=== PATIENT | male | born 1955 | race Caucasian/White ===

== ENCOUNTER → 2017-04-11 | Outpatient (REF) ==
[~2017-04-11] MED LIST: ACET65TA OR; HYDR-727; SIMVPOW2
--- NOTE | 2017-04-11 13:27 | REP ---
Right shoulder three views: There is acromioclavicular osteoarthritis. The glenohumeral articulation is unremarkable. Mineralization is normal. No calcifications. There is no fracture or dislocation. Impression: Acromioclavicular osteoarthritis. The Signed by Josiah Beckman MD 04/11/2017 01:19 P
== END ==
LOC: M RAD 11:46
PROVIDERS: ATTEND Internal Medicine
DX: M19.011 Primary osteoarthritis, right shoulder (principal)

== ENCOUNTER → 2019-07-09 | Outpatient (CLI) | payer OTHER ==
--- NOTE | 2019-07-09 08:36 | REP ---
Clinical: Abdominal pain. Technique: Real time hamilton scale ultrasound examination using curved array transducer. Findings: The liver and visualized pancreas are normal in appearance and without focal hepatic or pancreatic lesion identified. Gallbladder is normal and without gallstones, wall thickening, or pericholecystic fluid. No biliary ductal dilatation is appreciated and the common bile duct measures 6 mm diameter. 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 The right kidney is normal in reniform shape and appearance without hydronephrosis and measures 13.4 x 7.9 x 5.9 cm. The left kidney demonstrates partial upper pole nephrectomy and measures 5.2 x 5.0 x 5.2 cm without hydronephrosis. No ascites. Visualized abdominal aorta is unremarkable and measures 2.2 cm maximal diameter. Impression: 1. 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 2. No acute abdominopelvic pathology appreciated. Electronically Signed by Greg Molina MD 07/09/2019 08:27 A
== END ==
LOC: M RAD 07:54
PROVIDERS: ATTEND Internal Medicine
DX: R10.9 Unspecified abdominal pain (principal)

== ENCOUNTER → 2019-09-14 | Outpatient (CLI) | payer OTHER ==
[~2019-09-14] MED LIST changes: +FUROSEMIDE 20 MG/2 ML VIAL (J1940) As Ordered ONE
--- NOTE | 2019-09-14 12:57 | REP ---
Nuclear renal scintigraphy with differential flow and function analysis: Including Lasix venography. History: Abnormal radiologic findings. Comparison CT study and ultrasound exam from July 20, 2019. Comparison CT study is also reviewed from January 15, 2012. There is a history of partial left nephrectomy. Technique: 8.7 mCi technetium 99m MAG 3 is injected and standard posterior flow and excretory phase images are acquired. Renal cortical regions of interest are drawn and time activity curves are plotted for renal function analysis. 20 mg of intravenous Lasix is injected and post Lasix renography is carried out. Scintigraphic findings: Posterior flow study shows symmetric perfusion of the kidneys. The left kidney is laterally displaced as seen on CT studies and smaller than the right but perfuses symmetrically. Excretory phase images demonstrate bilateral renal function with a small left sided kidney laterally displaced post partial nephrectomy as seen on CT. There is no evidence of obstructive uropathy on pre Lasix images. Differential renal function analysis is quite asymmetric with only 16% of renal cortical counts coming from the left kidney and 84% from the right. Time to peak activity is normal bilaterally at 3.0 minutes. Time to half max activity is 4.8 minutes on the right and not calculable on the left. Post Lasix imaging is not informative as there is no hydronephrosis on the pre Lasix images. Impression: Status post partial left nephrectomy with lateral displacement postoperatively seen in the left kidney. Normal flow and function. No evidence of obstructive uropathy. Electronically Signed by Paulino Mustafa MD 09/14/2019 06:42 P
== END ==
LOC: M RAD 09:29
PROVIDERS: ATTEND Nurse Practitioner Family
DX: Z90.5 Acquired absence of kidney (principal); R93.41 Abnormal radiologic findings on diagnostic imaging of renal pelvis, ureter, or bladder
CPT/HCPCS: 78708; A9562; J1940

== ENCOUNTER 2020-04-24 09:44 | Emergency (ER) | payer OTHER ==
[~2020-04-24] VITALS: Ht 185.4 cm; Wt 124.4 kg
[~2020-04-24 09:44] MED LIST changes: -FUROSEMIDE 20 MG/2 ML VIAL (J1940) As Ordered ONE
[2020-04-24] MEDS ORDERED: ALLO100T PO (09:59)
[2020-04-24] MEDS ORDERED: ROSU5TAB5 PO (09:59)
[2020-04-24] MEDS ORDERED: RAMI1CAP26 PO (09:59)
--- NOTE | 2020-04-24 10:46 | REPVR ---
PROCEDURE INFORMATION: Exam: US Duplex Right Lower Extremity Veins, Limited Exam date and time: 04/24/2020 10:41 AM Age: 64 years old Clinical indication: Swelling (edema) of limb; Lower extremity, right TECHNIQUE: Imaging protocol: Real-time Duplex ultrasound of the Right Lower Extremity with 2-D hamilton scale, color Doppler flow and spectral waveform analysis with image documentation. Limited exam was focused on the right lower extremity veins. COMPARISON: No relevant prior studies available. FINDINGS: Right deep veins: Examination reveals nonocclusive deep venous thrombosis in the right popliteal vein. There is occlusive deep venous thrombosis in the right posterior tibial vein. The right common femoral and femoral vein are patent without evidence for DVT. Right superficial veins: Unremarkable. Saphenofemoral junction is patent without thrombus. Soft tissues: Unremarkable. IMPRESSION: Examination reveals nonocclusive deep venous thrombosis in the right popliteal vein. There is occlusive deep venous thrombosis in the right posterior tibial vein. Electronically signed by: Mello Marsh On 04/24/2020 10:46:25 AM
--- NOTE | 2020-04-24 11:20 | REPVR ---
PROCEDURE INFORMATION: Exam: CT Head Without Contrast Exam date and time: 04/24/2020 11:11 AM Age: 64 years old Clinical indication: Other: Paresthesia TECHNIQUE: Imaging protocol: Computed tomography of the head without contrast. Radiation optimization: All CT scans at this facility use at least one of these dose optimization techniques: automated exposure control; mA and/or kV adjustment per patient size (includes targeted exams where dose is matched to clinical indication); or iterative reconstruction. COMPARISON: No relevant prior studies available. FINDINGS: Brain: Examination of the brain demonstrates normal structure and attenuation.The cortical steele / white matter interfaces are preserved throughout the brain.No acute infarction, masses or hemorrhage is seen. Cerebral ventricles: The ventricular system is not dilated and is appropriate for the patient's age. Bones/joints: Unremarkable. No acute fracture. Paranasal sinuses: Visualized sinuses are unremarkable. No fluid levels. Mastoid air cells: Visualized mastoid air cells are well aerated. Soft tissues: Unremarkable. IMPRESSION: No acute infarction, masses or hemorrhage is seen. No acute intracranial abnormality is identified. Electronically signed by: Mello Marsh On 04/24/2020 11:19:43 AM
[2020-04-24] MEDS ORDERED: FLON1SPR (12:02)
[2020-04-24] MEDS ORDERED: RAMI1CAP24 PO (12:02)
[2020-04-24] MEDS ORDERED: ROSU40TA4 PO (12:02)
[2020-04-24] MEDS ORDERED: VITA50005 PO (12:02)
[2020-04-24] MEDS ORDERED: OMEP-221 PO (12:02)
[2020-04-24] MEDS ORDERED: IBUP1TAB6 PO (12:02)
[2020-04-24 13:01] LABS: INR 0.97; PROTHROMBIN TIME 13.1 SECONDS (12.5-14.3)
[2020-04-24 13:02] LABS: PARTIAL THROMBOPLASTIN TIME 35.1 SECONDS (24.2-38.5)
[2020-04-24] MEDS ORDERED: RIVAROXABAN 15 MG TAB (XARELTO) PO ONE (14:00)
[2020-04-24] MEDS ORDERED: XARE15TA PO (14:09)
[2020-04-24 15:30] VITALS: BP 134/75
--- NOTE | 2020-04-24 19:33 | ECGEPIP ---
[facility] - ED Test Date: 2020-04-24 Pat Name: AYDEN HURTADO Department: Room: - Gender: Male [employer]: : [id number] Requested By: Minal Carlos Order Number: [id number] Reading MD: Tommie Butt Measurements Intervals [place] Rate: 51 P: 27 NE: 202 QRS: -57 QRSD: 121 T: 12 QT: 408 QTc: 379 Interpretive Statements SINUS BRADYCARDIA RIGHT BUNDLE BRANCH BLOCK NONSPECIFIC T WAVE ABNORMALITY(S) BASELINE ARTIFACT AFFECTS INTERPRETATION NO PRIORS FOR COMPARISON Electronically Signed on 04-24-2020 19:33:16 EDT by Tommie Butt
[2020-04-30 12:51] LABS: DRVV SCREEN 68.9 SEC; PTT LUPUS TYPE ANTICOAG SCREEN 1.8 (0-1.2)
[2020-04-30 13:06] LABS: DRVV CONFIRM 53.3 SEC; LUPUS CONFIRM RATIO 1.4; NORMALIZED RATIO 1.29 (0.00-1.20)
[2020-04-30 21:08] LABS: ANTI THROMBIN 3 ANTIGEN IMMUNO 89 % (72-124); ANTI THROMBIN 3 FUNCT ACTIVITY 107 % (75-135); CARDIOLIPIN IGA ANTIBODY <9 APL U/mL (0-11); CARDIOLIPIN IGG ANTIBODY <9 GPL U/mL (0-14); CARDIOLIPIN IGM ANTIBODY 19 MPL U/mL (0-12); PHOSPHOLIPIDS LEVEL 186 mg/dL (150-250); PROTEIN C FUNCTIONAL ACTIVITY 157 % (73-180); PROTEIN S FUNCTIONAL ACTIVITY 77 % (63-140)
[2020-05-04 09:06] LABS: HEXAGONAL PHASE PHOSPHOLIPID 15 sec (0-11)
== END 2020-04-24 15:32 | disposition home or self-care (01) ==
LOC: M ED 09:44
DX: I82.409 Acute embolism and thrombosis of unspecified deep veins of unspecified lower extremity (principal); I10 Essential (primary) hypertension; R00.1 Bradycardia, unspecified; I45.10 Unspecified right bundle-branch block; Z79.899 Other long term (current) drug therapy

== ENCOUNTER → 2022-09-13 | Outpatient (CLI) | payer MEDICARE, OTHER ==
[~2022-09-13] MED LIST changes: +ALLO100T PO; +ERGO500029 PO; +FLON1SPR; +IBUP1TAB6 PO; +OMEP40CA5 PO; +RAMI1CAP24 PO; +RAMI1CAP26 PO; +ROSU40TA4 PO; +ROSU5TAB5 PO; +XARE15TA PO
== END ==
LOC: M RAD 13:00
PROVIDERS: ATTEND Orthopaedic Surgery
DX: S46.012A Strain of muscle(s) and tendon(s) of the rotator cuff of left shoulder, initial encounter (principal); X58.XXXA Exposure to other specified factors, initial encounter; Y92.9 Unspecified place or not applicable

== ENCOUNTER 2022-11-27 12:50 | Emergency (ER) | payer MEDICARE, OTHER ==
[~2022-11-27] VITALS: Ht 185.4 cm; Wt 126.1 kg
[2022-11-27] MEDS ORDERED: NS 1,000 ML IV ONE (13:35)
[2022-11-27] MEDS ORDERED: ISOVUE-370 76% 100ML VIAL As Ordered ONE (13:43)
[2022-11-27 13:48] LABS: BASO # 0.1 10^3/uL (0.0-0.2); BASO % 0.5 % (0.0-1.0); EOS # 0.1 10^3/uL (0.0-0.5); EOS % 0.5 % (0.0-3.0); HEMATOCRIT 47.4 % (42.0-52.0); HEMOGLOBIN 15.4 g/dl (13.5-17.5); LYMPH # 3.2 10^3/uL (1.5-5.0); LYMPH % 31.1 % (24.0-44.0); MEAN CORPUSCULAR HGB CONC 32.5 g/dl (32.0-36.5); MEAN CORPUSCULAR VOLUME 89.3 fl (80.0-96.0); MONO # 0.9 10^3/uL (0.0-0.8); NEUTROPHILS # 6.1 10^3/uL (1.5-8.5); NEUTROPHILS % 58.6 % (36.0-66.0); PLATELET COUNT, AUTOMATED 348 10^3/uL (150-450); RED BLOOD COUNT 5.31 10^6/uL (4.30-6.10); WHITE BLOOD COUNT 10.4 10^3/uL (4.0-10.0)
[2022-11-27 14:03] LABS: ALBUMIN 3.8 G/DL (3.2-5.2); BILIRUBIN,DIRECT 0.2 MG/DL (<0.4); BILIRUBIN,TOTAL 0.7 MG/DL (0.3-1.2); TOTAL PROTEIN 6.9 G/DL (5.7-8.2)
[2022-11-27 15:40] VITALS: BP 141/81
== END 2022-11-27 15:59 | disposition home or self-care (01) ==
LOC: M ED 12:50
DX: R10.32 Left lower quadrant pain (principal); N23 Unspecified renal colic; Z88.0 Allergy status to penicillin; Z88.1 Allergy status to other antibiotic agents; Z79.899 Other long term (current) drug therapy
CPT/HCPCS: 36415; 74177; 80047; 80076; 83690; 85025; 99284; Q9967

== ENCOUNTER 2023-05-23 06:50 | Day surgery (SDC) | payer MEDICARE, OTHER ==
[~2023-05-23] VITALS: Ht 185.4 cm; Wt 124.6 kg
[~2023-05-23 06:50] MED LIST changes: +CELE1CAP4 PO; +HYDR-4514 PO; +JARD1TAB PO; +NS 1,000 ML IV ONE; +VITA100093 PO; +propofoL 200 MG/20 ML VIAL As Ordered ONE
[2023-05-23] MEDS ORDERED: propofoL 200 MG/20 ML VIAL As Ordered ONE ×2 (07:04→07:39)
[2023-05-23 08:19] VITALS: BP 139/78; TEMP 97.9; O2SAT 95
== END 2023-05-23 08:22 | disposition home or self-care (01) ==
LOC: M OPP 06:50
PROVIDERS: ATTEND Internal Medicine Gastroenterology
DX: Z12.11 Encounter for screening for malignant neoplasm of colon (principal); Z12.12 Encounter for screening for malignant neoplasm of rectum; K64.0 First degree hemorrhoids; K57.30 Diverticulosis of large intestine without perforation or abscess without bleeding; Z98.0 Intestinal bypass and anastomosis status; E11.9 Type 2 diabetes mellitus without complications; I10 Essential (primary) hypertension; E78.00 Pure hypercholesterolemia, unspecified; Z79.01 Long term (current) use of anticoagulants; Z79.899 Other long term (current) drug therapy; Z86.718 Personal history of other venous thrombosis and embolism; Z90.5 Acquired absence of kidney; Z88.0 Allergy status to penicillin; Z88.1 Allergy status to other antibiotic agents

== ENCOUNTER → 2024-03-01 | Outpatient (CLI) | payer MEDICARE, OTHER ==
[~2024-03-01] MED LIST changes: -NS 1,000 ML IV ONE; +RAMI10CA64 PO; -RAMI1CAP24 PO; -RAMI1CAP26 PO; +RAMI5CAP60 PO; -ROSU40TA4 PO; +ROSU40TA63 PO; +ROSU5TAB40 PO; -ROSU5TAB5 PO; -propofoL 200 MG/20 ML VIAL As Ordered ONE
== END ==
LOC: M RAD 13:35
PROVIDERS: ATTEND Internal Medicine
DX: N18.9 Chronic kidney disease, unspecified (principal); N20.0 Calculus of kidney; N28.81 Hypertrophy of kidney

== ENCOUNTER → 2024-05-25 | Outpatient (REF) | payer OTHER ==
[~2024-05-25] MED LIST changes: -ROSU40TA63 PO; +ROSU40TA81 PO; -ROSU5TAB40 PO; +ROSU5TAB49 PO
[2024-05-25 17:54] LABS: APPEARANCE, URINE CLEAR (CLEAR); BACTERIA, URINE AUTO NEGATIVE (NEGATIVE); BILIRUBIN, URINE AUTO NEGATIVE (NEGATIVE); BLOOD, URINE BLOOD NEGATIVE (NEGATIVE); COLOR, URINE YELLOW (YELLOW); GLUCOSE, URINE (UA) AUTO 3+ mg/dL (NEGATIVE); KETONE, URINE AUTO NEGATIVE (NEGATIVE); LEUKOCYTE ESTERASE, URINE AUTO NEGATIVE (NEGATIVE); MUCUS, URINE SMALL (NEGATIVE); NITRITE, URINE AUTO NEGATIVE (NEGATIVE); PROTEIN, URINE AUTO NEGATIVE (NEGATIVE); RBC, URINE AUTO 0 /HPF (0-3); SPECIFIC GRAVITY URINE AUTO 1.032 (1.002-1.035); SQUAMOUS EPITHELIAL CELL UR AU 0 /HPF (0-6); UROBILINOGEN, URINE AUTO 0.2 mg/dL (0.0-2.0); WBC, URINE AUTO 2 /HPF (0-3)
== END ==
LOC: M SMT 16:47
PROVIDERS: ATTEND Nurse Practitioner Family
DX: R10.9 Unspecified abdominal pain (principal)

== ENCOUNTER → 2024-06-06 | Outpatient (CLI) | payer OTHER, MEDICARE | LOC: M PLAIMG 13:20 | PROVIDERS: ATTEND Nurse Practitioner Family | DX: N20.0 Calculus of kidney (principal); Z90.49 Acquired absence of other specified parts of digestive tract; N26.1 Atrophy of kidney (terminal); K40.20 Bilateral inguinal hernia, without obstruction or gangrene, not specified as recurrent ==

== ENCOUNTER 2024-09-07 07:26 | Emergency (ER) | payer OTHER, MEDICARE ==
[~2024-09-07] VITALS: Ht 182.9 cm; Wt 127.5 kg
[2024-09-07 08:13] LABS: BASO # 0.1 10^3/uL (0.0-0.2); BASO % 1.6 % (0.0-1.0); EOS # 0.1 10^3/uL (0.0-0.5); EOS % 1.7 % (0.0-3.0); HEMOGLOBIN 14.5 g/dl (13.5-17.5); LYMPH # 2.1 10^3/uL (1.5-5.0); LYMPH % 33.2 % (24.0-44.0); MEAN CORPUSCULAR HEMOGLOBIN 29.3 pg (27.0-33.0); MEAN CORPUSCULAR VOLUME 88.9 fl (80.0-96.0); MONO # 0.5 10^3/uL (0.0-0.8); MONO % 8.2 % (2.0-8.0); NEUTROPHILS # 3.5 10^3/uL (1.5-8.5); NEUTROPHILS % 55.1 % (36.0-66.0); PLATELET COUNT, AUTOMATED 311 10^3/uL (150-450); RED BLOOD COUNT 4.95 10^6/uL (4.30-6.10); WHITE BLOOD COUNT 6.3 10^3/uL (4.0-10.0)
[2024-09-07 08:18] LABS: INR 1.68
[2024-09-07 08:40] LABS: KETONE, URINE AUTO RFX NEGATIVE (NEGATIVE); LEUKOCYTE ESTERASE UR AUTO RFX NEGATIVE (NEGATIVE); MUCUS, URINE RFX SMALL (NEGATIVE); NITRITE, URINE AUTO RFX NEGATIVE (NEGATIVE); RBC, URINE AUTO RFX 0 /HPF (0-3); SQUAM EPITHELIAL CELL UR AURFX 0 /HPF (0-6); WBC, URINE AUTO RFX 3 /HPF (0-3)
[2024-09-07 08:43] LABS: LIPASE 31 U/L (12-53)
[2024-09-07 08:44] LABS: ALKALINE PHOSPHATASE 65 U/L (40-129); ALT/SGPT 32 U/L (7.0-40); AMYLASE 58 U/L (30-118); AST/SGOT 17 U/L (<34); BILIRUBIN,DIRECT 0.2 MG/DL (<0.4); BILIRUBIN,TOTAL 0.6 MG/DL (0.3-1.2); BLOOD UREA NITROGEN 20 MG/DL (9-23); CALCIUM LEVEL 8.9 MG/DL (8.3-10.6); CARBON DIOXIDE LEVEL 23 MMOL/L (20-31); CHLORIDE LEVEL 108 MMOL/L (98-107); CREATININE FOR GFR 1.05 MG/DL (0.70-1.30); GLOMERULAR FILTRATION RATE > 60.0 (>49); GLUCOSE, FASTING 112 MG/DL (74-106); POTASSIUM SERUM 4.6 MMOL/L (3.5-5.1); SODIUM LEVEL 139 MMOL/L (136-145); TOTAL PROTEIN 7.3 G/DL (5.7-8.2)
[2024-09-07 10:20] VITALS: BP 136/69; TEMP 96.9; O2SAT 96
== END 2024-09-07 10:21 | disposition home or self-care (01) ==
LOC: M ED 07:26
DX: N20.0 Calculus of kidney (principal); I10 Essential (primary) hypertension; E78.5 Hyperlipidemia, unspecified; E11.9 Type 2 diabetes mellitus without complications; Z90.5 Acquired absence of kidney; Z79.84 Long term (current) use of oral hypoglycemic drugs; Z79.01 Long term (current) use of anticoagulants; Z79.899 Other long term (current) drug therapy; Z88.8 Allergy status to other drugs, medicaments and biological substances; Z88.0 Allergy status to penicillin; Z88.1 Allergy status to other antibiotic agents; Z91.010 Allergy to peanuts

== ENCOUNTER 2024-09-09 08:20 | Emergency (ER) | payer OTHER, MEDICARE ==
[~2024-09-09] VITALS: Ht 185.4 cm; Wt 126.8 kg
[2024-09-09] MEDS ORDERED: HYDR-4429 PO (11:39)
[2024-09-09 12:01] VITALS: BP 162/84; TEMP 97.8; O2SAT 97
== END 2024-09-09 12:02 | disposition home or self-care (01) ==
LOC: M ED 08:20
DX: M54.9 Dorsalgia, unspecified (principal); W18.30XA Fall on same level, unspecified, initial encounter; Y92.009 Unspecified place in unspecified non-institutional (private) residence as the place of occurrence of the external cause; Y93.9 Activity, unspecified; Y99.9 Unspecified external cause status; I25.10 Atherosclerotic heart disease of native coronary artery without angina pectoris; I10 Essential (primary) hypertension; E78.5 Hyperlipidemia, unspecified; Z90.5 Acquired absence of kidney; Z85.828 Personal history of other malignant neoplasm of skin; Z79.01 Long term (current) use of anticoagulants; Z79.899 Other long term (current) drug therapy; Z88.8 Allergy status to other drugs, medicaments and biological substances; Z88.1 Allergy status to other antibiotic agents; Z88.0 Allergy status to penicillin; Z91.010 Allergy to peanuts

== ENCOUNTER 2024-09-13 17:57 | Emergency (ER) | payer OTHER, MEDICARE ==
[~2024-09-13] VITALS: Ht 185.4 cm; Wt 127.3 kg
[~2024-09-13 17:57] MED LIST changes: +HYDR-4429 PO
[2024-09-13 18:07] VITALS: TEMP 99.1
[2024-09-13 18:34] LABS: BASO # 0.1 10^3/uL (0.0-0.2); BASO % 1.1 % (0.0-1.0); EOS # 0.2 10^3/uL (0.0-0.5); HEMATOCRIT 43.2 % (42.0-52.0); HEMOGLOBIN 14.6 g/dl (13.5-17.5); LYMPH # 3.2 10^3/uL (1.5-5.0); LYMPH % 35.9 % (24.0-44.0); MEAN CORPUSCULAR HEMOGLOBIN 30.1 pg (27.0-33.0); MEAN CORPUSCULAR HGB CONC 33.8 g/dl (32.0-36.5); MEAN CORPUSCULAR VOLUME 89.1 fl (80.0-96.0); MONO % 10.9 % (2.0-8.0); NEUTROPHILS # 4.4 10^3/uL (1.5-8.5); NEUTROPHILS % 49.8 % (36.0-66.0); PLATELET COUNT, AUTOMATED 368 10^3/uL (150-450); RED BLOOD COUNT 4.85 10^6/uL (4.30-6.10); WHITE BLOOD COUNT 8.9 10^3/uL (4.0-10.0)
[2024-09-13 19:04] LABS: BLOOD UREA NITROGEN 21 MG/DL (9-23); CARBON DIOXIDE LEVEL 25 MMOL/L (20-31); CHLORIDE LEVEL 107 MMOL/L (98-107); CREATININE FOR GFR 1.22 MG/DL (0.70-1.30); GLOMERULAR FILTRATION RATE > 60.0 (>49); GLUCOSE, FASTING 113 MG/DL (74-106); POTASSIUM SERUM 4.3 MMOL/L (3.5-5.1); SODIUM LEVEL 142 MMOL/L (136-145)
[2024-09-13 19:11] LABS: CPK CREATINE PHOSPHOKINASE 145 U/L (46-171); MB/CK RELATIVE INDEX 0.68 (< OR =4)
[2024-09-13] MEDS ORDERED: ISOVUE-370 76% 100ML VIAL As Ordered ONE (19:22)
[2024-09-13] MEDS: ASPIRIN 81MG CHEW TABLET PO ONE (19:22)
[2024-09-13 19:54] LABS: CK-MB VALUE MASS < 1.0 NG/ML (<3.6)
[2024-09-13 19:56] LABS: CPK CREATINE PHOSPHOKINASE 129 U/L (46-171); MB/CK RELATIVE INDEX 0.77 (< OR =4)
[2024-09-13 22:03] LABS: CK-MB VALUE MASS < 1.0 NG/ML (<3.6)
[2024-09-13 22:07] LABS: CPK CREATINE PHOSPHOKINASE 122 U/L (46-171); MB/CK RELATIVE INDEX 0.81 (< OR =4)
[2024-09-13] MEDS ORDERED: PERC5TAB12 PO (22:25)
[2024-09-13 22:42] VITALS: O2SAT 95
[2024-09-13 22:43] VITALS: BP 145/66
== END 2024-09-13 22:46 | disposition home or self-care (01) ==
LOC: M ED 17:57
DX: S22.42XA Multiple fractures of ribs, left side, initial encounter for closed fracture (principal); W00.0XXA Fall on same level due to ice and snow, initial encounter; Y92.9 Unspecified place or not applicable; Y93.9 Activity, unspecified; Y99.9 Unspecified external cause status; I10 Essential (primary) hypertension; E78.5 Hyperlipidemia, unspecified; E55.9 Vitamin D deficiency, unspecified; Z79.01 Long term (current) use of anticoagulants; Z79.899 Other long term (current) drug therapy; Z88.8 Allergy status to other drugs, medicaments and biological substances; Z88.0 Allergy status to penicillin; Z88.1 Allergy status to other antibiotic agents; Z91.010 Allergy to peanuts
CPT/HCPCS: 71045; 71275; 80048; 82550; 82553; 84484; 85025; 93005; 93041; 94760; 99285; Q9967

== ENCOUNTER 2024-10-19 08:21 | Emergency (ER) | payer OTHER, MEDICARE ==
[~2024-10-19] VITALS: Ht 185.4 cm; Wt 127.2 kg
[~2024-10-19 08:21] MED LIST changes: +PERC5TAB12 PO
[2024-10-19] MEDS ORDERED: DOXY-441 PO (10:26)
[2024-10-19 11:01] VITALS: BP 122/78; TEMP 97.8; O2SAT 98
== END 2024-10-19 11:16 | disposition home or self-care (01) ==
LOC: M ED 08:21
DX: S80.12XA Contusion of left lower leg, initial encounter (principal); L03.116 Cellulitis of left lower limb; W22.8XXA Striking against or struck by other objects, initial encounter; Y92.89 Other specified places as the place of occurrence of the external cause; Y93.89 Activity, other specified; Y99.9 Unspecified external cause status; Z88.1 Allergy status to other antibiotic agents; Z88.0 Allergy status to penicillin; Z79.899 Other long term (current) drug therapy

== ENCOUNTER → 2024-11-20 | Outpatient (REF) | payer MEDICARE, OTHER ==
[~2024-11-20] MED LIST changes: +DOXY-441 PO
[2024-11-20 15:37] LABS: APPEARANCE, URINE CLEAR (CLEAR); BACTERIA, URINE AUTO NEGATIVE (NEGATIVE); BILIRUBIN, URINE AUTO NEGATIVE (NEGATIVE); BLOOD, URINE BLOOD NEGATIVE (NEGATIVE); COLOR, URINE YELLOW (YELLOW); GLUCOSE, URINE (UA) AUTO 3+ mg/dL (NEGATIVE); KETONE, URINE AUTO NEGATIVE (NEGATIVE); LEUKOCYTE ESTERASE, URINE AUTO NEGATIVE (NEGATIVE); MUCUS, URINE SMALL (NEGATIVE); NITRITE, URINE AUTO NEGATIVE (NEGATIVE); PROTEIN, URINE AUTO NEGATIVE (NEGATIVE); RBC, URINE AUTO 0 /HPF (0-3); SPECIFIC GRAVITY URINE AUTO 1.027 (1.002-1.035); SQUAMOUS EPITHELIAL CELL UR AU 0 /HPF (0-6); UROBILINOGEN, URINE AUTO 0.2 mg/dL (0.0-2.0); WBC, URINE AUTO 3 /HPF (0-3)
== END ==
LOC: M SMT 15:05
PROVIDERS: ATTEND Nurse Practitioner Family
DX: R39.89 Other symptoms and signs involving the genitourinary system (principal)